=== PATIENT | female | born 1990 | race Caucasian/White ===

== ENCOUNTER 2018-04-04 16:51 | Outpatient (CLI) | payer OTHER ==
[~2018-04-04] VITALS: Ht 180.3 cm; Wt 78.6 kg
[2018-04-04 17:40] VITALS: BP 127/77
[2018-04-04 17:56] LABS: FERNING TEST FERNING NOT PRESENT (NEGATIVE)
[2018-04-04] MEDS ORDERED: TERBUTALINE 1 MG/ML, 1ML ONE (18:20)
[2018-04-04] MEDS ORDERED: TERBUTALINE 1 MG/ML, 1ML SQ PRN (18:30)
[2018-04-04] MEDS ORDERED: ONDANSETRON 4 MG TABLET ONE (19:24)
[2018-04-04] MEDS ORDERED: ONDANSETRON 4 MG TABLET PO ONE (19:30)
== END 2018-04-04 19:48 | disposition home or self-care (01) ==
LOC: LDOP 16:51
PROVIDERS: ATTEND Obstetrics & Gynecology
DX: O42.913 Preterm premature rupture of membranes, unspecified as to length of time between rupture and onset of labor, third trimester (principal); Z3A.32 32 weeks gestation of pregnancy
CPT/HCPCS: 59025; 84112; 89060; 99211; Q0162; G0463; Q0114

== ENCOUNTER 2018-05-18 01:22 | Inpatient (IN) | payer OTHER ==
[~2018-05-18] VITALS: Ht 180.3 cm; Wt 84.0 kg
[2018-05-18 01:45] VITALS: BP 139/87
[2018-05-18] MEDS ORDERED: LACTATED RINGERS 1,000 ML IV SCH ×2 (03:50→05:43)
[2018-05-18] MEDS ORDERED: OXYTOCIN 30U/ 0.9% NaCL 500ML 500 ML IV PRN (03:50)
[2018-05-18] MEDS ORDERED: OXYTOCIN 30U/ 0.9% NaCL 500ML 500 ML IV ONE (03:50)
[2018-05-18] MEDS ORDERED: D5%-LACTATED RINGERS 1,000 ML IV SCH (03:50)
[2018-05-18] MEDS ORDERED: FENTANYL/BUPIV./NS/PF 250 ML EPIDCONT SCH ×2 (03:50→05:43)
[2018-05-18] MEDS: LACTATED RINGERS 1,000 ML IV SCH ×2 (04:00→12:52)
[2018-05-18] MEDS ORDERED: ONDANSETRON 2MG/ML, 2ML IVPush PRN ×2 (04:00→06:00)
[2018-05-18] MEDS ORDERED: LACTATED RINGERS 1,000 ML IVBOLUS PRN ×2 (04:00→06:00)
[2018-05-18] MEDS ORDERED: NEWBORN KIT ONE (04:00)
[2018-05-18] MEDS ORDERED: FENTANYL PF 100 MCG/2ML IVPush PRN (04:00)
[2018-05-18] MEDS ORDERED: FENTANYL PF 100 MCG/2ML IV PRN (04:00)
[2018-05-18] MEDS ORDERED: TERBUTALINE 1 MG/ML, 1ML SQ PRN (04:00)
[2018-05-18] MEDS ORDERED: OXYTOCIN 30U/ 0.9% NaCL 500ML 500 ML ONE ×2 (04:00→20:10)
[2018-05-18] MEDS ORDERED: CALCIUM CARBONATE 500 MG TAB.CHEW PO PRN ×2 (04:00→19:00)
[2018-05-18] MEDS ORDERED: FENTANYL PF 100 MCG/2ML ONE ×2 (04:04→17:15)
[2018-05-18 04:21] LABS: BASOPHILS # (AUTO) 0.12 x10^3/uL (0-0.1); BASOPHILS % (AUTO) 1 % (0-1); EOSINOPHILS # (AUTO) 0.13 x10^3/uL (0-0.4); EOSINOPHILS % (AUTO) 1 % (1-7); LYMPHOCYTES # (AUTO) 2.13 x10^3/uL (1-3.4); LYMPHOCYTES % (AUTO) 15 % (22-44); MD NO; MEAN CORPUSCULAR HEMOGLOBIN 30.9 pg (27.0-34.8); MEAN CORPUSCULAR HGB CONC 34.3 g/dL (32.4-35.8); MEAN CORPUSCULAR VOLUME 90.3 fL (80-100); MEAN PLATELET VOLUME 8.8 fL (7.4-10.4); MONOCYTES # (AUTO) 0.98 x10^3/uL (0.2-0.8); MONOCYTES % (AUTO) 7 % (2-9); NEUTROPHILS # (AUTO) 10.65 x10^3/uL (1.8-6.8); NEUTROPHILS % (AUTO) 76 % (42-75); PLATELET COUNT 240 x10^3/uL (130-400); RED BLOOD COUNT 3.81 x10^6/uL (3.82-5.3); RED CELL DISTRIBUTION WIDTH 12.3 % (9.6-15.2)
[2018-05-18] MEDS ORDERED: BUPIVACAINE 0.25% ONE ×3 (05:20→17:15)
[2018-05-18] MEDS ORDERED: EPHEDRINE 50 MG/ML, 1ML ONE (05:40)
[2018-05-18] MEDS ORDERED: DIPHENHYDRAMINE 50 MG/ML, 1ML IVPush PRN (06:00)
[2018-05-18] MEDS ORDERED: NALOXONE 0.4 MG/ML, 1ML IVPush PRN (06:00)
[2018-05-18] MEDS ORDERED: EPHEDRINE 50 MG/ML, 1ML IVPush PRN (06:00)
[2018-05-18] MEDS ORDERED: LIDOCAINE/PF 1.5%-EPI 1:200K, 30ML ONE (07:38)
[2018-05-18] MEDS ORDERED: SODIUM CITRATE/CITRIC ACID 30 ML UDC ONE (08:34)
[2018-05-18] MEDS ORDERED: SODIUM CITRATE/CITRIC ACID 30 ML UDC PO ONE (09:00)
[2018-05-18] MEDS: OXYTOCIN 30U/ 0.9% NaCL 500ML 500 ML IV SCH (18:50)
[2018-05-18] MEDS ORDERED: OXYTOCIN 30U/ 0.9% NaCL 500ML 500 ML IV SCH (18:50)
[2018-05-18] MEDS ORDERED: IBUPROFEN 600 MG TABLET ONE (18:56)
[2018-05-18] MEDS: IBUPROFEN 600 MG TABLET PO PRN (18:58)
[2018-05-18] MEDS ORDERED: BISACODYL 10 MG SUPP PR PRN (19:00)
[2018-05-18] MEDS ORDERED: ONDANSETRON 2MG/ML, 2ML IV PRN (19:00)
[2018-05-18] MEDS ORDERED: MISOPROSTOL 200 MCG TABLET PR PRN (19:00)
[2018-05-18] MEDS ORDERED: HYDROcodone/APAP 5/325 TABLET PO PRN (19:00)
[2018-05-18] MEDS ORDERED: ACETAMINOPHEN 325 MG TABLET PO PRN ×2 (19:00)
[2018-05-18 21:00] VITALS: BP 127/72
[2018-05-18] MEDS: HYDROcodone/APAP 5/325 TABLET PO PRN (21:41)
[2018-05-18] MEDS: DOCUSATE 100 MG CAPSULE PO PRN (21:41)
[2018-05-19] MEDS: IBUPROFEN 600 MG TABLET PO PRN ×3 (01:41→14:59)
[2018-05-19 01:45] VITALS: BP 111/66
[2018-05-19 02:44] LABS: BASOPHILS # (AUTO) 0.03 x10^3/uL (0-0.1); BASOPHILS % (AUTO) 0 % (0-1); EOSINOPHILS # (AUTO) 0.04 x10^3/uL (0-0.4); EOSINOPHILS % (AUTO) 0 % (1-7); LYMPHOCYTES # (AUTO) 1.69 x10^3/uL (1-3.4); LYMPHOCYTES % (AUTO) 13 % (22-44); MD NO; MEAN CORPUSCULAR HEMOGLOBIN 30.4 pg (27.0-34.8); MEAN CORPUSCULAR HGB CONC 33.5 g/dL (32.4-35.8); MEAN CORPUSCULAR VOLUME 90.7 fL (80-100); MEAN PLATELET VOLUME 8.8 fL (7.4-10.4); MONOCYTES # (AUTO) 1.18 x10^3/uL (0.2-0.8); MONOCYTES % (AUTO) 9 % (2-9); NEUTROPHILS # (AUTO) 10.11 x10^3/uL (1.8-6.8); NEUTROPHILS % (AUTO) 77 % (42-75); PLATELET COUNT 217 x10^3/uL (130-400); RED BLOOD COUNT 3.28 x10^6/uL (3.82-5.3)
[2018-05-19 04:50] VITALS: BP 108/68
[2018-05-19] MEDS: OXYTOCIN 30U/ 0.9% NaCL 500ML 500 ML IV SCH ×2 (04:50→14:50)
[2018-05-19] MEDS: HYDROcodone/APAP 5/325 TABLET PO PRN ×4 (05:21→19:49)
[2018-05-19 07:20] VITALS: BP 98/60
[2018-05-19] MEDS: DOCUSATE 100 MG CAPSULE PO PRN ×2 (09:00→19:49)
[2018-05-19] MEDS: PRENATAL VIT/IRON/FA 1 EACH TABLET PO SCH (09:00)
[2018-05-19 12:05] VITALS: BP 112/68
[2018-05-19 16:00] VITALS: BP 116/66
[2018-05-19 19:30] VITALS: BP 126/71
[2018-05-20] MEDS: IBUPROFEN 600 MG TABLET PO PRN (03:15)
[2018-05-20] MEDS: HYDROcodone/APAP 5/325 TABLET PO PRN ×2 (03:16→08:21)
[2018-05-20 08:20] VITALS: BP 121/77
[2018-05-20] MEDS: PRENATAL VIT/IRON/FA 1 EACH TABLET PO SCH (08:21)
[2018-05-20] MEDS: DOCUSATE 100 MG CAPSULE PO PRN (08:21)
[2018-05-20] MEDS ORDERED: IBUP-1222 PO (11:59)
[2018-05-20] MEDS ORDERED: HYDR-3240 PO (12:00)
== END 2018-05-20 14:40 | disposition home or self-care (01) | DRG 807 ==
LOC: LDOP 01:22 → LDIP 03:51 → 2NW 20:48
PROVIDERS: ADMIT Obstetrics & Gynecology; ATTEND Obstetrics & Gynecology
PROC: 10E0XZZ Delivery of Products of Conception, External Approach (ICD-10-PCS; principal; 2018-05-18)
PROC: 0HQ9XZZ Repair Perineum Skin, External Approach (ICD-10-PCS; 2018-05-18)
PROC: 10907ZC Drainage of Amniotic Fluid, Therapeutic from Products of Conception, Via Natural or Artificial Opening (ICD-10-PCS; 2018-05-18)
PROC: 3E0R3BZ Introduction of Anesthetic Agent into Spinal Canal, Percutaneous Approach (ICD-10-PCS; 2018-05-18)
PROC: 00HU33Z Insertion of Infusion Device into Spinal Canal, Percutaneous Approach (ICD-10-PCS; 2018-05-18)
PROC: 10H07YZ Insertion of Other Device into Products of Conception, Via Natural or Artificial Opening (ICD-10-PCS; 2018-05-18)
DX: O70.0 First degree perineal laceration during delivery (principal); Z37.0 Single live birth; Z3A.38 38 weeks gestation of pregnancy
CPT/HCPCS: 36415; J7121; 85025; 86850; 86900; G0378; J3010; J3490; J2590; J7120

== ENCOUNTER → 2020-04-19 | Outpatient (CLI) | payer OTHER ==
[~2020-04-19] MED LIST: HYDR-1067 PO; IBUP-1222 PO
[2020-04-19 16:17] LABS: BASOPHILS % (AUTO) 1 % (0-1); EOSINOPHILS % (AUTO) 2 % (1-7); LYMPHOCYTES % (AUTO) 29 % (22-44); MEAN CORPUSCULAR HEMOGLOBIN 30.6 pg (27.0-34.8); MEAN CORPUSCULAR HGB CONC 33.4 g/dL (32.4-35.8); MEAN PLATELET VOLUME 7.1 fL (7.4-10.4); MONOCYTES % (AUTO) 9 % (2-9); NEUTROPHILS % (AUTO) 59 % (42-75); PLATELET COUNT 306 x10^3/uL (130-400); RED BLOOD COUNT 4.37 x10^6/uL (3.82-5.3); RED CELL DISTRIBUTION WIDTH 13.3 % (9.6-15.2)
[2020-04-19 16:20] LABS: ALANINE AMINOTRANSFERASE 20 U/L (12-78); ALBUMIN 4.1 g/dL (3.4-5.0); ANION GAP 6 mmol/L (5-15); CALCIUM 8.8 mg/dL (8.5-10.1); CHLORIDE 107 mmol/L (98-107)
[2020-04-19 16:25] LABS: ALKALINE PHOSPHATASE 41 U/L (45-117); BILIRUBIN,TOTAL 0.3 mg/dL (0.2-1.0); CREATININE 0.68 mg/dL (0.55-1.02); TOTAL PROTEIN 7.3 g/dL (6.4-8.2)
[2020-04-19 16:26] LABS: MD NO
[2020-04-19 16:37] LABS: MICROSCOPIC NOT IND
== END | disposition home or self-care (01) ==
LOC: STAR 15:08
PROVIDERS: ATTEND Obstetrics & Gynecology
DX: Z01.812 Encounter for preprocedural laboratory examination (principal); Z20.822 Contact with and (suspected) exposure to COVID-19
CPT/HCPCS: 80053; 81003; 84702; 85025; 87635